=== PATIENT | female | born 1995 | race Two or more races ===

== ENCOUNTER 2024-11-23 09:14 | Emergency (ER) | payer OTHER, MEDICAID, SELFPAY ==
[2024-11-23 09:15] VITALS: BMI 27.5
[2024-11-23 09:32] VITALS: BP 145/87; PULSE 88; RESP 16; TEMP 37.1; O2SAT 99
--- NOTE | 2024-11-23 09:42 | EDNOTE_ITS ---
ED Headache RME/HPI General Chief Complaint: Headache Stated Complaint: SEVERE HEADACHE W/ L) HEAD/FACE NUMBNESS X 1 DAY Time Seen by Provider: 11/23/24 10:03 Source: patient Arrival date/time: 11/23/24 09:14 29-year-old female with a history of migraines presents to the emergency room wi th a chief complaint of a left-sided headache and facial numbness x 1 day Mode of arrival: ambulatory Limitations: no limitations Related Data Previous Rx's ?Medication ?Instructions ?Recorded albuterol sulfate 90 mcg/actuation 1 inh inhalation QI D PRN shortness 03/25/20 aerosol inhaler (Ventolin HFA) of breath or wheezing # 6.7 grams acetaminophen-caffeine 500 mg-65 1 tab PO Q8H PRN pain #30 tabs 11/23/24 mg tablet (Excedrin Tension Headache) Allergies Allergy/AdvReac Type Severity Reaction Status Date / Time No Known Allergies Allergy Verified 11/23/24 09:17 Review of Systems Review of Systems Systems Reviewed: All systems reviewed, normal except as documented Constitutional Constitutional: Reports system reviewed and no additional complaints, except as documented, Denies fatigue, Denies fever(s), Denies headache(s) and Denies weakness Eyes Eyes: Reports system reviewed and no additional complaints, except as documented, Denies blurry vision and Denies change in vision ENT Ears, Nose, Mouth, and Throat: Reports system reviewed and no additional complaints, except as documented, Denies otalgia, Denies headache(s), Denies nasal congestion, Denies throat swelling and Denies vertigo Cardiovascular Cardiovascular: Reports system reviewed and no additional complaints, except as documented, Denies chest pain, Denies dyspnea and Denies dyspnea on exertion Respiratory Respiratory: Reports system reviewed and no additional complaints, except as documented, Denies chest congestion, Denies cough, Denies dyspnea, Denies dyspnea on exertion and Denies wheezing Gastrointestinal Gastrointestinal: Reports system reviewed and no additional complaints, except as documented, Denies abdominal pain, Denies cramping, Denies nausea and Denies vomiting Genitourinary Genitourinary: Reports system reviewed and no additional complaints, except as documented Musculoskeletal Musculoskeletal: Reports system reviewed and no additional complaints, except as documented and Denies back pain Integumentary/Breasts Skin/Breast: Reports system reviewed and no additional complaints, except as documented and Denies wounds Neurologic Neurologic: Reports system reviewed and no additional complaints, except as documented, Denies confusion, Denies headache(s), Denies lack of coordination, Denies vertigo and Denies weakness Psychiatric Psychiatric: Reports system reviewed and no additional complaints, except as doc umented, Denies anxiety, Denies confusion, Denies depression, Denies paranoia, Denies suicidal ideation and Denies tactile hallucinations Endocrine Endocrine: Reports system reviewed and no additional complaints, except as documented and Denies fatigue Hematologic/Lymphatic Hematologic/Lymphatic: Reports system reviewed and no additional complaints, except as documented and Denies lymphadenopathy Allergic/Immunologic Allergic/Immunologic: Reports system reviewed and no additional complaints, except as documented, Denies throat swelling, Denies urticaria and Denies wheezing ED Exam General Limitations: Present no limitations General appearance: Present alert and in no apparent distress Head Head exam: Present atraumatic, normocephalic and normal inspection Eye Eye exam: Present normal appearance, PERRL and EOMI ENT ENT exam: Present normal exam, normal oropharynx and mucous membranes moist Neck Neck exam: Present normal inspection, full ROM and trachea midline Chest Chest inspection: Present normal inspection and symmetric chest wall rise Respiratory Respiratory exam: Present normal lung sounds bilaterally Cardiovascular Cardiovascular exam: Present regular rate, normal rhythm and normal heart sounds Abdominal Exam Abdominal exam: Present soft and normal bowel sounds Extremities Exam Extremities exam: Present normal inspection and full ROM Back Exam Back exam: Present normal inspection and full ROM Neurological Exam Neurological exam: Present alert, oriented X3, CN II-XII intact, normal gait and reflexes normal Expanded Neurological Exam Patient oriented to: Present person, place and time Speech: Present fluid speech Cranial nerves: Normal: EOM function (II, III, IV, ), facial sensation (V), facial palsy (VII), gag reflex (IX), spinal accessory function (XI) and tongue deviation (XII) Cerebellar function: Normal: finger to nose Cerebellar function: Present normal gait Motor strength - LUE: 5/5 Motor strength - RUE: 5/5 Motor strength - LLE: 5/5 Motor strength - RLE: 5/5 Coma scale eye opening: spontaneous Coma scale motor response: obeys commands Coma scale verbal response: oriented Coma scale total: 15 Psychiatric Psychiatric exam: Present normal affect and normal mood Skin Skin exam: Present warm, dry, intact and normal color Course Quality Measures none Orders Category Date Time Status Ketorolac Inj [Toradol Inj] Med 11/23/24 09:41 Discontinued 30 mg IM X1 ONE Metoclopramide [Reglan] Med 11/23/24 09:41 Discontinued 10 mg PO X1 ONE SUMAtriptan INJ [Imitrex Inj] Med 11/23/24 09:41 Discontinued 6 mg SC X1 ONE Vital Signs Vital signs: Vital Signs Temperature 98.7 F 11/23/24 09:32 Pulse Rate 88 11/23/24 09:32 Respiratory Rate 16 11/23/24 09:32 Blood Pressure 145/87 H 11/23/24 09:32 Pulse Oximetry (%) 99 11/23/24 09:32 Oxygen Delivery Method Room Air 11/23/24 09:32 O2 saturation 99% within normal limits Headache MDM Narrative MDM Narrative:: 29-year-old female with a history of migraines presents to the emergency room with a chief complaint of a left-sided headache and facial numbness x 1 day Patient is hemodynamically stable and in no apparent distress Physical examination shows a normal neurological exam. Pupils are PERRLA EOMs are intact. The patient is a GCS of 15 alert and oriented x 3. There is no nystagmus. Patient is complaining of a left-sided unilateral headache. Tympanic membrane is clear and nonbulging bilaterally. Patient states there is also some photophobia. Medication was given and the patient was reevaluated in 1 hour with significant improvement to her symptoms. Patient was discharged and educated to follow-up with primary care provider in the next 24 to 48 hours and return to the emergency room for any evidence of worsening signs or symptoms Patient data External records reviewed:: [facility] previous records Clinical information provided by:: patient Social determinants that could affect healthcare access:: none Patient has the following chronic illnesses:: No chronic illness How is presenting disease/condition affected by chronic disease/condition?: no chronic disease Evaluation data The following diagnostics were reviewed and interpreted by me:: lab results and radiology exam(s) Lab and/or radiology exams considered but not ordered:: Labs and radiology exams considered and ordered Interpretation Summary: N/A Medications / Prescriptions Medications or Prescriptions considered but not ordered:: Medication given Medication administrations:: Medication Administration History Discontinued Medications Ketorolac Tromethamine (Ketorolac Inj 60 Mg/2 Ml Vial) 30 mg IM X1 ONE Stop: 11/23/24 09:42 Last Admin: 11/23/24 10:23 Dose: 30 mg Documented By: ABRAN Metoclopramide HCl (Metoclopramide Liqd 10 Mg/10 Ml Udc) 10 mg PO X1 ONE Stop: 11/23/24 09:42 Last Admin: 11/23/24 10:23 Dose: 10 mg Documented By: ABRAN Sumatriptan Succinate (Sumatriptan Inj 6 Mg/0.5 Ml Vial) 6 mg SC X1 ONE Stop: 11/23/24 09:42 Last Admin: 11/23/24 10:24 Dose: 6 mg Documented By: ABRAN Medication given Consultations Consultation(s) initiated? (list below): No Diagnosis Differential diagnosis headache: migraine, tension headache, subarachnoid hemorrhage, headache and sinusitis Most likely diagnosis given after review of the tests above:: Migraine Admission Indicated Admission indicated?: not indicated Admission Request Was there a request for admission?: No Disposition Plan Disposition Plan: Discharge Discharge Attestation Discharge Attestation: The patient and all family members were given an opportunity to ask questions and understood the discharge instructions. Discharge instructions specifically effects, indications for sooner follow up or return to the emergency department, and the expected course of current diagnosis. Patient condition: Stable Discharge Plan Plan Patient Disposition: HOME (Self Care) Disposition Comment: Stable Prescriptions/Referrals Prescriptions/Med Rec: New Excedrin Tension Headache 500-65 mg tablet 1 tab PO Q8H PRN (Reason: pain) Qty: 30 0RF No Action albuterol sulfate [Ventolin HFA] 90 mcg/actuation HFA aerosol inhaler 1 inh IH QID PRN (Reason: shortness of breath or wheezing) Qty: 6.7 0RF Referrals: No Primary/Family,Physician [Primary Care Provider] - In 1 week Problem List Clinical Impression: Migraine Patient/Caregiver Discharge Instructions Education Materials: ED Headache, Migraine, Classic Additional Instructions: Please follow-up with your primary care provider in the next 24 to 48 hours. For any evidence of worsening signs or symptoms return to the emergency room immediately Print Language: Welsh Stand Alone Forms: Adeola Award Info., Work/School Release, Patient Portal Info Letter CRAIG/TRAMAINE Supervising Physician CRAIG/TRAMAINE Supervising Physician: Dr Beyer
[2024-11-23] MEDS: METOCLOPRAMIDE LIQD 10 MG/10 ML UDC PO (10:23)
[2024-11-23] MEDS: KETOROLAC INJ 60 MG/2 ML VIAL 30 MG IM (10:23)
[2024-11-23] MEDS: SUMAtriptan INJ 6 MG/0.5 ML VIAL SC (10:24)
== END 2024-11-23 12:08 | disposition home or self-care (01) ==
PROVIDERS: Emergency Provider Emergency Medicine
DX: G43.909 Migraine, unspecified, not intractable, without status migrainosus (principal)
CPT/HCPCS: 96372; 99283; J1885; J3030; A9270

== ENCOUNTER → 2025-02-07 | Outpatient (CLI) | payer OTHER, MEDICAID, SELFPAY ==
[2025-02-07 13:36] LABS: Alanine Aminotransferase 19 U/L (10-49); Albumin, Serum 4.3 gm/dL (3.5-5.0); Albumin/Globulin Ratio 1.9 (1.2-2.2); Alkaline Phosphatase 84 U/L (46-116); Anion Gap 10 (7-16); BUN/Creatinine Ratio 17 Ratio (12-20); Bilirubin,Total 0.6 mg/dL (0.3-1.2); Blood Urea Nitrogen 10 mg/dL (9-23); Chloride 106 mMol/L (98-107); Creatinine (Component) 0.6 mg/dL (0.6-1.3); Globulin 2.3 gm/dL (2.3-3.5); Glucose 96 mg/dL (74-106); Osmolality,Calculated 283 (275-295); Potassium 4.1 mMol/L (3.4-5.1); Sodium 143 mMol/L (136-145); Total Protein 6.6 gm/dL (5.7-8.2); eGFR > 60 See Note
== END | disposition home or self-care (01) ==
LOC: COPL 12:12
PROVIDERS: PCP Nurse Practitioner Family; Referring Provider Nurse Practitioner Family; Visit Provider Nurse Practitioner Family
DX: Z00.00 Encounter for general adult medical examination without abnormal findings (principal)
CPT/HCPCS: 36415; 80053

== ENCOUNTER 2025-03-10 21:43 | Emergency (ER) | payer OTHER, MEDICAID, SELFPAY ==
[2025-03-10 21:44] VITALS: BMI 26.5
[2025-03-10 22:01] VITALS: BP 149/100; PULSE 84; RESP 18; TEMP 36.9; O2SAT 99
--- NOTE | 2025-03-10 22:04 | EDNOTE_ITS ---
<Statement entered by Marissa Rodríguez MD - 03/14/25 05:44> As co-signing physician, I was present and available for consult prn. I concur with the plan and care as documented by the midlevel provider. ED Headache RME/HPI General Chief Complaint: Headache Stated Complaint: HEADACHE X 5 HOURS Time Seen by Provider: 03/10/25 21:59 Arrival date/time: 03/10/25 21:43 RME / HPI RME / HPI Narrative: 29-year-old female patient with significant history of migraine headache, came in for evaluation regarding recurrence of migraine headache for the last 5 hours. Patient took Excedrin caffeine, with no relief. Patient denies any vomiting denies any blurry vision denies any neck pain denies any fever denies any recent head trauma. Patient denies any other complaints patient is ambulatory. Related Data Previous Rx's ?Medication ?Instructions ?Recorded albuterol sulfate 90 mcg/actuation 1 inh inhalation QI D PRN shortness 03/25/20 aerosol inhaler (Ventolin HFA) of breath or wheezing # 6.7 grams acetaminophen-caffeine 500 mg-65 1 tab PO Q8H PRN pain #30 tabs 11/23/24 mg tablet (Excedrin Tension Headache) rizatriptan 10 mg disintegrating See Rx Instructions P O .COMPLEX 03/10/25 tablet (Maxalt-DELIVERY DRIVER ASSISTANT) #30 tabs Allergies Allergy/AdvReac Type Severity Reaction Status Date / Time No Known Allergies Allergy Verified 03/10/25 21:44 Review of Systems Review of Systems Narrative Review of Systems: Review of system reviewed and within normal limits except mentioned in HPI ED Exam Narrative Physical exam: VITAL SIGNS: Reviewed. GENERAL APPEARANCE: Alert and interactive, follows commands, no acute distress, HEAD AND FACE: Non-traumatic. ENT: PERRL, pink conjunctivitis, eyelid no trauma, Mucous membrane moist. NECK: Supple, nontender, no nuchal rigidity. CHEST: No tenderness, no crepitus, no paradoxical movement, no retractions. LUNGS: Clear, well ventilated, symmetric, no rales, no wheezing, no ronchi, no stridor, good breath sounds bilaterally. HEART: Regular rate, regular rhythm, no murmur, no gallops. ABDOMEN: Soft, positive bowel sounds, nondistended, no guarding, nontender, no rebound, no masses, RECTAL: Deferred. GENITAL: Deferred. NEUROLOGICAL: Gross motor function intact sensory function intact, Appropriate for age. MUSCULOSKELETAL: low back nontender, full range of motion. EXTREMITIES: Nontender, full range of motion. SKIN: Color pink, dry, no rash, no lacerations, no abrasions, no contusions. LYMPHATICS: Deferred. Course Quality Measures none Orders Category Date Time Status DiphenhydrAMINE [Benadryl] Med 03/10/25 22:03 Discontinued 50 mg PO X1 ONE Ketorolac Inj [Toradol Inj] Med 03/10/25 22:03 Discontinued 30 mg IM X1 ONE Metoclopramide [Reglan] Med 03/10/25 22:03 Discontinued 10 mg PO X1 ONE Vital Signs Vital signs: Vital Signs Temperature 98.4 F 03/10/25 22:01 Pulse Rate 84 03/10/25 22:01 Respiratory Rate 18 03/10/25 22:01 Blood Pressure 149/100 H 03/10/25 22:01 Pulse Oximetry (%) 99 03/10/25 22:01 Oxygen Delivery Method Room Air 03/10/25 22:01 Headache MDM Narrative MDM Narrative:: Imaging or workup is not needed at this time, patient is not having thunderclap type of headache. Patient received Benadryl Reglan and Toradol with complete resolution of symptoms patient is ambulatory. Patient data External records reviewed:: None Clinical information provided by:: patient Social determinants that could affect healthcare access:: none Patient has the following chronic illnesses:: None How is presenting disease/condition affected by chronic disease/condition?: no chronic disease Evaluation data The following diagnostics were reviewed and interpreted by me:: other (specify) (None) Lab and/or radiology exams considered but not ordered:: None Interpretation Summary: None Medications / Prescriptions Medications or Prescriptions considered but not ordered:: None Medication administrations:: Medication Administration History Discontinued Medications Diphenhydramine HCl (Diphenhydramine 25 Mg Capsule) 50 mg PO X1 ONE Stop: 03/10/25 22:04 Last Admin: 03/10/25 22:09 Dose: 50 mg Documented By: Ketorolac Tromethamine (Ketorolac Inj 60 Mg/2 Ml Vial) 30 mg IM X1 ONE Stop: 03/10/25 22:04 Last Admin: 03/10/25 22:09 Dose: 30 mg Documented By: Metoclopramide HCl (Metoclopramide 5 Mg Tablet) 10 mg PO X1 ONE Stop: 03/10/25 22:04 Last Admin: 03/10/25 22:09 Dose: 10 mg Documented By: Louie Toradol Reglan Consultations Consultation(s) initiated? (list below): No Diagnosis Differential diagnosis headache: migraine, tension headache and headache Most likely diagnosis given after review of the tests above:: Headache, migraine Admission Indicated Admission indicated?: not indicated Admission Request Was there a request for admission?: No Disposition Plan Disposition Plan: Discharge Discharge Attestation Discharge Attestation: The patient was given an opportunity to ask questions and understood the discharge instructions. Discharge instructions specifically effects, indications for sooner follow up or return to the emergency department, and the expected course of current diagnosis. Patient condition: Stable Discharge Plan Plan Patient Disposition: HOME (Self Care) Discharge Disposition comment: Stable Prescriptions/Referrals Prescriptions/Med Rec: New rizatriptan [Maxalt-DELIVERY DRIVER ASSISTANT] 10 mg tablet,disintegrating See Rx Instructions .ROUTE .COMPLEX Qty: 30 0RF Rx Instructions: take 1 tab at onset of headache; if no relief may repeat 1 tab after at least 2 hrs; max = 3 tabs/24 hr No Action albuterol sulfate [Ventolin HFA] 90 mcg/actuation HFA aerosol inhaler 1 inh IH QID PRN (Reason: shortness of breath or wheezing) Qty: 6.7 0RF Excedrin Tension Headache 500-65 mg tablet 1 tab PO Q8H PRN (Reason: pain) Qty: 30 0RF Problem List Clinical Impression: Migraine Patient/Caregiver Discharge Instructions Discharge Activity: activity as tolerated Education Materials: ED Headache, Migraine, Classic Additional Instructions: Thank you for the opportunity for serving you today. You are stable for discharged . You are advised to: Follow-up with your PCP in 1 to 2 days Return to ED for worsening of symptoms Increase oral fluids Take medication as prescribed Print Language: Azerbaijani Stand Alone Forms: Adeola Award Info., Patient Portal Info Letter PA/TRAMAINE Supervising Physician CRAIG/TRAMAINE Supervising Physician: MD Anne
[2025-03-10] MEDS: KETOROLAC INJ 60 MG/2 ML VIAL 30 MG IM (22:09)
[2025-03-10] MEDS: METOCLOPRAMIDE 5 MG TABLET 10 MG PO (22:09)
== END 2025-03-10 22:38 | disposition home or self-care (01) ==
LOC: SERX 22:34
PROVIDERS: Emergency Provider Emergency Medicine; PCP Nurse Practitioner Family
DX: G43.909 Migraine, unspecified, not intractable, without status migrainosus (principal)
CPT/HCPCS: 96372; 99283; J1885; A9270

== ENCOUNTER 2025-04-28 20:20 | Emergency (ER) | payer OTHER, MEDICAID, SELFPAY ==
[2025-04-28 20:20] VITALS: BMI 26.5
[2025-04-28 21:06] VITALS: BP 148/91; PULSE 81; RESP 19; TEMP 36.8; O2SAT 100
--- NOTE | 2025-04-28 21:10 | EDNOTE_ITS ---
ED Headache RME/HPI General Chief Complaint: Headache Stated Complaint: MIGRAINES Time Seen by Provider: 04/28/25 21:09 Arrival date/time: 04/28/25 20:20 RME / HPI RME / HPI Narrative: 29-year-old female patient came in for evaluation regarding headache. Patient had a significant history of migraine, still been having headaches since 2:00 this morning been taking Excedrin Migraine, with no relief. Patient also felt nauseous. Denies any fever denies any neck pain denies any recent trauma or fall. Patient is ambulatory. Related Data Previous Rx's ?Medication ?Instructions ?Recorded albuterol sulfate 90 mcg/actuation 1 inh inhalation QI D PRN shortness 03/25/20 aerosol inhaler (Ventolin HFA) of breath or wheezing # 6.7 grams acetaminophen-caffeine 500 mg-65 1 tab PO Q8H PRN pain #30 tabs 11/23/24 mg tablet (Excedrin Tension Headache) rizatriptan 10 mg disintegrating See Rx Instructions P O .COMPLEX 03/10/25 tablet (Maxalt-TECHNICAL SALES CONSULTANT) #30 tabs rizatriptan 10 mg tablet (Maxalt) 10 mg PO Q2H PRN heidi keyonna headache 04/28/25 #30 tabs Allergies Allergy/AdvReac Type Severity Reaction Status Date / Time No Known Allergies Allergy Verified 03/10/25 21:44 Review of Systems Review of Systems Narrative Review of Systems: Review of system reviewed and within normal limits except mentioned in HPI ED Exam Narrative Physical exam: VITAL SIGNS: Reviewed. GENERAL APPEARANCE: Alert and interactive, follows commands, no acute distress, HEAD AND FACE: Non-traumatic. ENT: PERRL, pink conjunctivitis, eyelid no trauma, Mucous membrane moist. NECK: Supple, nontender, no nuchal rigidity. CHEST: No tenderness, no crepitus, no paradoxical movement, no retractions. LUNGS: Clear, well ventilated, symmetric, no rales, no wheezing, no ronchi, no stridor, good breath sounds bilaterally. HEART: Regular rate, regular rhythm, no murmur, no gallops. ABDOMEN: Soft, positive bowel sounds, nondistended, no guarding, nontender, no rebound, no masses, RECTAL: Deferred. GENITAL: Deferred. NEUROLOGICAL: Gross motor function intact sensory function intact, Appropriate for age. MUSCULOSKELETAL: low back nontender, full range of motion. EXTREMITIES: Nontender, full range of motion. SKIN: Color pink, dry, no rash, no lacerations, no abrasions, no contusions. LYMPHATICS: Deferred. Course Quality Measures none Orders Category Date Time Status Insert IV NOW Care 04/28/25 21:32 Active DiphenhydrAMINE INJ [Benadryl Inj] Med 04/28/25 21:09 Discontinued 50 mg IVP X1 ONE Ketorolac Inj [Toradol Inj] Med 04/28/25 21:09 Discontinued 30 mg IVP X1 ONE Metoclopramide Inj [Reglan Inj] Med 04/28/25 21:09 Discontinued 10 mg IVP X1 ONE Ringers Lactated 1000 ml [Lactated Ringers] 1,000 ml Med 04/28/25 21:10 Discontinued IV 999 mls/hr Vital Signs Vital signs: Vital Signs Temperature 98.3 F 04/28/25 21:06 Pulse Rate 81 04/28/25 21:06 Respiratory Rate 19 04/28/25 21:06 Blood Pressure 148/91 H 04/28/25 21:06 Pulse Oximetry (%) 100 04/28/25 21:06 Oxygen Delivery Method Room Air 04/28/25 21:06 Headache MDM Narrative MDM Narrative:: 29-year-old female patient came in for evaluation regarding headache. Patient had a significant history of migraine, still been having headaches since 2:00 this morning been taking Excedrin Migraine, with no relief. Patient also felt nauseous. Denies any fever denies any neck pain denies any recent trauma or fall. Patient is ambulatory. Patient received IV fluids, Toradol, Benadryl and Reglan with complete resolution of headache. Patient appears nontoxic and hemodynamically stable .Decision to discharge the patient. The patient/family was given an opportunity to ask questions and understood their discharge instructions. Discharge instructions specifically included follow up provider and time frame, current and/or new medications and possible side effects, indications for sooner follow up or return to the emergency department, and the expected course of current diagnosis. Patient reports feeling better as well and giving evidence of significant clinical improvement, I believe patient is now a candidate for discharge. Patient data External records reviewed:: None Clinical information provided by:: patient Social determinants that could affect healthcare access:: none Patient has the following chronic illnesses:: Migraine headache How is presenting disease/condition affected by chronic disease/condition?: exacerbated by Evaluation data The following diagnostics were reviewed and interpreted by me:: other (specify) (None) Lab and/or radiology exams considered but not ordered:: None Interpretation Summary: None Medications / Prescriptions Medications or Prescriptions considered but not ordered:: None Medication administrations:: Medication Administration History Discontinued Medications Diphenhydramine HCl (Diphenhydramine Inj 50 Mg/Ml Vial) 50 mg IVP X1 ONE Stop: 04/28/25 21:10 Last Admin: 04/28/25 21:40 Dose: 50 mg Documented By: TOM Lactated Ringer's (Lactated Ringers) 1,000 mls @ 999 mls/hr IV .Q1H1M ONE Stop: 04/28/25 22:10 Last Admin: 04/28/25 21:39 Dose: 999 mls/hr Documented By: TOM Ketorolac Tromethamine (Ketorolac Inj 30 Mg/Ml Vial) 30 mg IVP X1 ONE Stop: 04/28/25 21:10 Last Admin: 04/28/25 21:40 Dose: 30 mg Documented By: TOM Metoclopramide HCl (Metoclopramide Inj 5 Mg/Ml Vial 2 Ml) 10 mg IVP X1 ONE; Protocol Stop: 04/28/25 21:10 Last Admin: 04/28/25 21:40 Dose: 10 mg Documented By: TOM Reglan Toradol IV fluids and Benadryl Consultations Consultation(s) initiated? (list below): No Diagnosis Differential diagnosis headache: tension headache and headache Most likely diagnosis given after review of the tests above:: Migraine headache Admission Indicated Admission indicated?: not indicated Explain why admission is indicated or not indicated:: Stable Admission Request Was there a request for admission?: No Disposition Plan Disposition Plan: Discharge Discharge Attestation Discharge Attestation: The patient was given an opportunity to ask questions and understood the discharge instructions. Discharge instructions specifically effects, indications for sooner follow up or return to the emergency department, and the expected course of current diagnosis. Patient condition: Stable Discharge Plan Plan Patient Disposition: HOME (Self Care) Discharge Disposition comment: Stable Prescriptions/Referrals Prescriptions/Med Rec: New rizatriptan [Maxalt] 10 mg tablet 10 mg PO Q2H PRN (Reason: migraine headache) Qty: 30 0RF Rx Instructions: do not exceed 3 doses per 24 hrs No Action albuterol sulfate [Ventolin HFA] 90 mcg/actuation HFA aerosol inhaler 1 inh IH QID PRN (Reason: shortness of breath or wheezing) Qty: 6.7 0RF rizatriptan [Maxalt-TECHNICAL SALES CONSULTANT] 10 mg tablet,disintegrating See Rx Instructions .ROUTE .COMPLEX Qty: 30 0RF Rx Instructions: take 1 tab at onset of headache; if no relief may repeat 1 tab after at least 2 hrs; max = 3 tabs/24 hr Excedrin Tension Headache 500-65 mg tablet 1 tab PO Q8H PRN (Reason: pain) Qty: 30 0RF Referrals: ELISABETH PETERSON [Primary Care Provider] - In 1 week Problem List Clinical Impression: Migraine Patient/Caregiver Discharge Instructions Discharge Activity: activity as tolerated Education Materials: Headache Migraine Stages Tx Additional Instructions: Thank you for the opportunity for serving you today. You are stable for discharg ed . You are advised to: Follow-up with your PCP in 1 to 2 days Return to ED for worsening of symptoms Increase oral fluids Take medication as prescribed Print Language: Finnish Stand Alone Forms: Adeola Award Info., Patient Portal Info Letter PA/TRAMAINE Supervising Physician CRAIG/TRAMAINE Supervising Physician: MD Lucaino
[2025-04-28] MEDS: RINGERS LACTATED 1000 ML 1,000 ML 999 ML IV (21:39)
[2025-04-28] MEDS: METOCLOPRAMIDE INJ 5 MG/ML VIAL 2 ML 10 MG IVP (21:40)
[2025-04-28] MEDS: KETOROLAC INJ 30 MG/ML VIAL IVP (21:40)
== END 2025-04-28 22:42 | disposition home or self-care (01) ==
PROVIDERS: Emergency Provider Emergency Medicine; PCP Nurse Practitioner Family
DX: G43.909 Migraine, unspecified, not intractable, without status migrainosus (principal)
CPT/HCPCS: 96361; 96374; 96375; 99283; J1200; J1885; J2765; J7120